=== PATIENT | female | born 1970 | race Caucasian/White ===

== ENCOUNTER 2017-01-26 16:35 | Emergency (ER) | payer BC ==
[2017-01-26 16:49] VITALS: RESP 18; TEMP 98
--- NOTE | 2017-01-26 16:54 | EDPHY ---
HPI/HX/ROS/PE/MDM Narrative: CHIEF COMPLAINT: Left hip injury HPI: The patient is a 46-year-old female with no significant past medical history. Last night she was working out on a treadmill when the power shut off , causing her to awkwardly twisted her left hip. Since that time she has complained of pain in her lateral left hip. She denies fall or direct trauma. She has been able to walk and bear weight. REVIEW OF SYSTEMS: Aside from elements discussed in the HPI, a comprehensive 10-point review of systems was reviewed and is negative. PMH: Chronic nystagmus. No history of hip surgery or disease. SOCIAL HISTORY: Works in a [email or web address] . PHYSICAL EXAM: General:Patient is alert, in no acute distress. ENT:Eyes are normal to inspection. ENT inspection normal. Extremities: Left hip: Normal to inspection. Tenderness to palpation is present on the lateral aspect of the left hip and proximal femur as well as the buttocks region. Neuro: Oriented x3. Normal motor function. Normal sensory function. MDM: This patient presents with signs and symptoms of a hip sprain confirmed by negative x-ray. She will be referred to Orthopedics and instructed to take anti -inflammatory medications. - Data Points Imaging Results: Imaging Impressions Hip X-Ray 01/26/17 16:53 Impression: Normal. Arthritis, fracture or stress response. Imaging: Discussed imaging studies w/ reverser Radiologist, I viewed and interpreted images myself General Time Seen by Provider: 01/26/17 16:40 Initial Vital Signs: Initial Vital Signs Temperature (C) 36.6 C 01/26/17 16:45 Heart Rate 89 01/26/17 16:45 Respiratory Rate 18 01/26/17 16:45 Blood Pressure 123/73 H 01/26/17 16:45 O2 Sat (%) 98 01/26/17 16:45 O2 Delivery Mode Room Air Allergies/Adverse Reactions: No Known Allergies Allergy (Unverified 01/26/17 17:39) Home Medications: Medication Instructions Recorded NK [No Known Home Meds] 01/26/17 Departure - Departure Disposition: Home, Routine, Self-Care Clinical Impression: Hip strain Qualifiers: Encounter type: initial encounter Laterality: left Qualified Code(s): S76.012A - Strain of muscle, fascia and tendon of left hip, initial encounter Condition: Good Instructions: Muscle Strain (ED) Additional Instructions: Rest, ice, elevation. Follow up with an orthopedic surgeon within one week if pain persists. Return to the emergency department for worsening pain, swelling , numbness, weakness or other concerns. Referrals: NONE *PRIMARY CARE P,. [Primary Care Provider] - As per Instructions
[2017-01-26] MEDS ORDERED: KETOROLAC 30 MG/1 ML SDV IM ONE (17:29)
[2017-01-26] MEDS ORDERED: KETOROLAC 30 MG/1 ML SDV ONE (17:40)
[2017-01-26 17:50] VITALS: BP 122/62; PULSE 74; O2SAT 97
== END 2017-01-26 17:48 | disposition home or self-care (01) ==
LOC: CED 16:35
DX: S76.012A Strain of muscle, fascia and tendon of left hip, initial encounter (principal); X50.0XXA Overexertion from strenuous movement or load, initial encounter
CPT/HCPCS: 73502-PO; J1885